=== PATIENT | male | born 1965 | race African-American/Black ===

== ENCOUNTER 2025-01-18 05:30 | Inpatient (IN) | payer OTHER, MEDICAID ==
[~2025-01-18] VITALS: Ht 188 cm; Wt 70.3 kg
[~2025-01-18 05:30] MED LIST: ALBU18HF2 IH; TAMS-54 PO
[2025-01-18 06:10] LABS: CLARITY URINE CLEAR (CLEAR); COLOR URINE YELLOW (YELLOW); GLUCOSE URINE NEGATIVE (NEGATIVE); KETONES URINE TRACE (NEGATIVE); LEUKOCYTE ESTERASE URINE NEGATIVE (NEGATIVE); NITRITE URINE NEGATIVE (NEGATIVE); OCCULT BLOOD URINE NEGATIVE (NEGATIVE); PH URINE 6.0 (4.5-8.0); PROTEIN URINE NEGATIVE (NEGATIVE); SPECIFIC GRAVITY URINE 1.026 (1.005-1.030); UROBILINOGEN URINE 0.2 E.U./dL (0.2-1.0)
[2025-01-18] MEDS ORDERED: LACTATED RINGERS 1,000 ML IV SCH (06:30)
[2025-01-18] MEDS ORDERED: ACETAMINOPHEN 1000MG/100ML 100 ML IV ONE (06:52)
[2025-01-18] MEDS ORDERED: FAMOTIDINE 20MG/2ML VIAL IV ONE (06:52)
[2025-01-18] MEDS ORDERED: PHENYLEPHRINE 50MG/250ML PMX 250 ML IV ONE (06:52)
[2025-01-18] MEDS ORDERED: PHENYLEPHRINE HCL 10MG/ML 1ML IV ONE (06:52)
[2025-01-18] MEDS ORDERED: BUPIVACAINE HCL/PF 0.5% (5MG/ML) 10ML ONE (06:53)
[2025-01-18] MEDS ORDERED: PROPOFOL 200MG/20ML VIAL IV ONE (06:59)
[2025-01-18] MEDS ORDERED: ROCURONIUM BROMIDE 10MG/ML VIAL 5ML IV ONE (07:02)
[2025-01-18] MEDS ORDERED: CEFAZOLIN SODIUM 1000MG/VIAL ONE (07:02)
[2025-01-18] MEDS ORDERED: LIDOCAINE HCL/PF 1% 10 MG/ML 5ML VIAL ONE (07:02)
[2025-01-18] MEDS ORDERED: MIDAZOLAM HCL 2 MG/2 ML VIAL ONE (07:29)
[2025-01-18] MEDS ORDERED: FENTANYL CITRATE/PF 50MCG/ML 2ML VIAL ONE (07:29)
[2025-01-18] MEDS ORDERED: HYDROMORPHONE HCL/PF 1MG/ML INJ ONE (07:53)
[2025-01-18] MEDS ORDERED: HYDRALAZINE 20MG/ML VIAL IV PRN ×2 (08:00)
[2025-01-18] MEDS ORDERED: ONDANSETRON HCL 4MG/2ML INJ IV PRN (08:00)
[2025-01-18] MEDS ORDERED: LABETALOL 5MG/ML 4ML INJ IV PRN (08:00)
[2025-01-18] MEDS ORDERED: GLYCOPYRROLATE 0.2 MG/ML 2ML VIAL ONE ×2 (08:52→08:53)
[2025-01-18] MEDS ORDERED: NEOSTIGMINE METHYLSULFATE 1MG/ML 10 ML VIAL ONE (08:52)
[2025-01-18] MEDS ORDERED: MORPHINE SULFATE 2 MG/ML INJ (NOT FOR IM USE) IV PRN (09:30)
[2025-01-18] MEDS ORDERED: MAGNESIUM HYDROXIDE 400MG/5ML 30ML UDC PO PRN (09:30)
[2025-01-18] MEDS: MEPERIDINE HCL/PF 25MG/ML CPJ IV PRN (09:54)
[2025-01-18 12:00] VITALS: BP 114/75; PULSE 76; RESP 18; TEMP 37; O2SAT 100
[2025-01-18 12:51] VITALS: BP 117/71; PULSE 87; RESP 16; TEMP 36.5848
[2025-01-18] MEDS ORDERED: CEFAZOLIN SODIUM 1000MG/VIAL IV SCH (14:00)
[2025-01-18] MEDS: CEFAZOLIN 1000MG PREMIX 50 ML IV SCH (14:49)
[2025-01-18] MEDS: HYDROCODONE/ACETAMINOPHEN 5/325MG TABLET PO PRN (16:27)
[2025-01-18] MEDS: OXYBUTYNIN CHLORIDE 5MG TABLET PO SCH (16:28)
[2025-01-18 20:00] VITALS: BP 127/77; PULSE 72; RESP 18; TEMP 37.6; O2SAT 99
[2025-01-18] MEDS: HYDROCODONE/ACETAMINOPHEN 10/325MG TABLET PO PRN (21:31)
[2025-01-18] MEDS: LORAZEPAM 1MG TABLET PO PRN (23:14)
[2025-01-19] VITALS: BP 114/65; PULSE 78; RESP 18; TEMP 37.2; O2SAT 95
[2025-01-19 04:00] VITALS: BP 117/68; PULSE 77; RESP 18; TEMP 36.8; O2SAT 98
[2025-01-19 08:00] VITALS: BP 120/68; PULSE 63; RESP 17; TEMP 36.6; O2SAT 98
[2025-01-19] MEDS ORDERED: NALOXONE HCL 0.4MG/ML VIAL IV PRN (08:00)
[2025-01-19] MEDS: FERROUS SULFATE 325MG TABLET PO SCH (09:14)
[2025-01-19] MEDS: BICALUTAMIDE 50 MG TABLET PO SCH (09:14)
[2025-01-19 10:16] LABS: BASOPHILS % 0.4 % (0.0-2.0); EOSINOPHILS % 0.8 % (0.0-5.0); HEMATOCRIT. 31.9 % (42.0-52.0); HEMOGLOBIN. 10.9 g/dL (14.0-18.0); LYMPHOCYTES % 13.8 % (20.0-50.0); MEAN PLATELET VOLUME 7.7 fl (7.4-10.4); MONOCYTES % 11.8 % (2.0-8.0); NEUTROPHILS % 73.2 % (40.0-76.0); PLATELET 224 x1000/uL (130-400); RED BLOOD CELL COUNT 3.39 mill/uL (4.7-6.1); RED CELL DISTRIBUTION WIDTH 13.2 % (11.6-14.6)
[2025-01-19 10:37] LABS: CREATININE 1.3 mg/dL (0.6-1.3); UREA NITROGEN BLOOD 11 mg/dL (9-23)
[2025-01-19] MEDS: LEVOFLOXACIN 500MG TABLET PO SCH (11:54)
[2025-01-19 12:00] VITALS: BP 121/63; PULSE 65; RESP 18; TEMP 36.5; O2SAT 98
[2025-01-19 16:00] VITALS: BP 125/65; PULSE 66; RESP 18; TEMP 36.4; O2SAT 98
[2025-01-19 20:00] VITALS: BP 86/62; PULSE 77; RESP 16; TEMP 36.6; O2SAT 95
[2025-01-20] VITALS: BP 111/70; PULSE 83; RESP 16; TEMP 36.7; O2SAT 95
[2025-01-20 04:00] VITALS: BP 109/62; PULSE 94; RESP 14; TEMP 36.5; O2SAT 94
[2025-01-20 08:00] VITALS: BP 115/79; PULSE 78; RESP 18; TEMP 36.6; O2SAT 99
[2025-01-20 11:27] VITALS: BP 115/79; PULSE 78; RESP 18; TEMP 97.9
[2025-01-20 12:00] VITALS: BP 103/59; PULSE 56; RESP 16; TEMP 36.6; O2SAT 97
== END 2025-01-20 14:37 | disposition home or self-care (01) | DRG 707 ==
LOC: OR 05:30 → 7EST 11:59
PROVIDERS: ADMIT Urology; ATTEND Urology
PROC: 0VT00ZZ Resection of Prostate, Open Approach (ICD-10-PCS; principal; 2025-01-18)
DX: N40.1 Benign prostatic hyperplasia with lower urinary tract symptoms (principal); N13.8 Other obstructive and reflux uropathy; R33.8 Other retention of urine; Z88.0 Allergy status to penicillin
CPT/HCPCS: 36415; 71045; 80048; 81003; 85014; 85018; 85025; 86850; 86900; 88309; 93005; C1758; J0665; J0690; J1171; J1308; J2003; J2175; J2250; J2371; J2704; J2710; J3010; J3490; J7120; J0131